=== PATIENT | female | born 1980 | race Hispanic/Latino ===

== ENCOUNTER 2019-02-09 19:23 | Emergency (ER) | payer OTHER ==
[2019-02-09 20:25] LABS: Hematocrit 31.3 % (30.3-42.9); Hemoglobin 9.5 gm/dl (10.1-14.3); Mean Corpuscular HGB Conc 30 % (30-34); Platelet Count 164 K/mm3 (140-440); Red Blood Count 4.95 M/mm3 (3.65-5.03)
[2019-02-09 20:32] LABS: BUN/Creatinine Ratio 23; Blood Urea Nitrogen 9 mg/dL (7-17); Calcium 8.8 mg/dL (8.4-10.2); Hemolysis Index 4
[2019-02-09 20:34] LABS: Mean Corpuscular Volume 63 fl (79-97)
[2019-02-09 20:35] LABS: Red Cell Distribution Width 20.7 % (13.2-15.2)
--- NOTE | 2019-02-09 21:04 | XRay Report ---
XR CHEST ROUTINE 2V CLINICAL INDICATION: Female, 38 years of age. Chest Pain COMPARISON: None. Findings: Frontal and lateral views of the chest were obtained. Cardiac silhouette is within normal limits. No focal consolidation or effusion. No pneumothorax. Prior anterior fusion of the lower cerv ical spine. IMPRESSION: No acute findings. This document is electronically signed by Xander Bradley DO., February 09 2019 09:03:02 PM ET
[2019-02-09 21:16] LABS: Anisocytosis 1+; Band Neutrophils # (Manual) 0.2 K/mm3; Basophils % (Manual) 0 % (0.0-1.8); Eosinophils % (Manual) 0 % (0.0-4.3); Total Cells Counted 100
[2019-02-09 21:17] LABS: Hypochromasia 2+; Ovalocytes 1+; Platelet Estimate Consistent w Auto
[2019-02-09] MEDS ORDERED: VALIUM IV ONE (23:12)
[2019-02-09] MEDS ORDERED: ATIVAN IV PRN ×3 (23:13)
--- NOTE | 2019-02-09 23:24 | Emergency Department Report ---
ED General Adult HPI - General Chief complaint: Alcohol Stated complaint: NAUSEA/DETOX Time Seen by Provider: 02/09/19 23:05 Source: patient, family, RN notes reviewed Mode of arrival: Ambulatory Limitations: No Limitations - History of Present Illness Initial comments: This is a 38-year-old female, not known to this provider previously. Her primary care doctor is Dr. Fields patient reports a past medical history of alcohol dependence, gastric bypass, asthma. The patient presents to the emergency room with a complaint of requesting alcohol detox. She reports taking multiple shots every day, over the past 6 months. Her last alcoholic drink was at 5 to 6:00 this morning. Since stopping alcohol consumption, she is developed tremors, nausea, weakness, malaise and fatigue. She denies,'s Lao suicidality. She is nauseous, and vomited times once. She denies focal extremity weakness. She makes no complaint of chest pain. She does endorse that she feels like her heart is "pounding in my chest." The patient reports that she feels very anxious, and very jittery. She denies abdominal pain at this time. She denies urinary symptoms. She denies oral contraceptive use. She denies DVT, pulmonary embolus risk factors. -: Gradual, hour(s) Severity scale (0 -10): 8 Consistency: constant Improves with: none Worsens with: none - Related Data Previous Rx's Medication Instructions Recorded Last Taken Type Folic Acid [Folvite] 1 mg PO QDAY #30 tablet 02/10/19 Unknown Rx Magnesium Oxide 400 mg PO BID #28 tablet 02/10/19 Unknown Rx Multivitamin [One Daily 1 each PO QDAY #30 tablet 02/10/19 Unknown Rx Multivitamin] chlordiazePOXIDE [Librium] 25 mg PO Q6H PRN #20 capsule 02/10/19 Unknown Rx Allergies Allergy/AdvReac Type Severity Reaction Status Date / Time Penicillins Allergy Anaphylaxis Verified 02/09/19 19:34 ED Review of Systems ROS: Stated complaint: NAUSEA/DETOX Other details as noted in HPI Constitutional: malaise Eyes: denies: eye discharge ENT: denies: epistaxis Respiratory: denies: cough Cardiovascular: palpitations Gastrointestinal: nausea, vomiting Genitourinary: denies: dysuria Musculoskeletal: denies: back pain Skin: denies: lesions Neurological: weakness Psychiatric: anxiety. denies: homicidal thoughts, suicidal thoughts ED Past Medical Hx - Past Medical History Previous Medical History?: Yes Hx Asthma: Yes Additional medical history: ETOH - Surgical History Past Surgical History?: Yes Additional Surgical History: c- sect, Gastric BYpass, cervical fusion - Social History Smoking Status: Current Every Day Smoker Substance Use Type: Alcohol - Medications Home Medications: Home Medications Medication Instructions Recorded Confirmed Last Taken Type Folic Acid [Folvite] 1 mg PO QDAY #30 tablet 02/10/19 Unknown Rx Magnesium Oxide 400 mg PO BID #28 tablet 02/10/19 Unknown Rx Multivitamin [One Daily 1 each PO QDAY #30 tablet 02/10/19 Unknown Rx Multivitamin] chlordiazePOXIDE [Librium] 25 mg PO Q6H PRN #20 capsule 02/10/19 Unknown Rx ED Physical Exam - General Limitations: No Limitations General appearance: alert, anxious, obese - Head Head exam: Present: atraumatic, normocephalic - Eye Eye exam: Present: normal appearance, PERRL, EOMI, other (visual acuity intact to finger counting, color perception, reading at a close distance). Absent: nystagmus - ENT ENT exam: Present: normal exam, normal orophraynx, normal external ear exam, o ther (tongue fasciculations noted) - Neck Neck exam: Present: normal inspection, full ROM. Absent: tenderness, meningismus - Respiratory Respiratory exam: Present: normal lung sounds bilaterally. Absent: respiratory distress - Cardiovascular Cardiovascular Exam: Present: regular rate, normal rhythm, normal heart sounds. Absent: bradycardia, tachycardia, irregular rhythm, systolic murmur, diastolic murmur, rubs, gallop - GI/Abdominal GI/Abdominal exam: Present: soft. Absent: distended, tenderness, guarding, rebound, rigid, pulsatile mass - Extremities Exam Extremities exam: Present: normal inspection, full ROM, other (2+ pulses noted in the bilateral upper, lower extremities. Compartments soft. No long bony tenderness. The pelvis is stable.). Absent: pedal edema, joint swelling, calf tenderness - Back Exam Back exam: Present: normal inspection, full ROM. Absent: tenderness, CVA tenderness (R), paraspinal tenderness, vertebral tenderness - Neurological Exam Neurological exam: Present: alert, oriented X3, CN II-XII intact, normal gait, other (Extraocular movements intact. Tongue midline. No facial droop. Facial sensation intact to light touch in the V1, V2, V3 distribution bilaterally. 5 and 5 strength in 4 extremities.. Sensation is intact to light touch in 4 extremities.). Absent: motor sensory deficit - Psychiatric Psychiatric exam: Present: anxious. Absent: homicidal ideation, suicidal ideation - Skin Skin exam: Present: warm, dry, intact, normal color. Absent: rash ED Course Vital Signs 02/09/19 02/09/19 02/09/19 19:33 23:03 23:07 Temperature 98.1 F Pulse Rate 79 89 Respiratory 18 16 22 Rate Blood Pressure 148/86 Blood Pressure 112/86 [Left] O2 Sat by Pulse 99 98 Oximetry 02/09/19 02/09/19 02/09/19 23:21 23:31 23:45 Temperature Pulse Rate 76 93 H Respiratory 16 20 Rate Blood Pressure 112/86 112/86 112/86 Blood Pressure [Left] O2 Sat by Pulse 97 99 94 Oximetry 02/10/19 02/10/19 02/10/19 00:01 00:15 00:31 Temperature Pulse Rate 95 H 94 H 94 H Respiratory 20 15 20 Rate Blood Pressure 112/86 134/63 134/63 Blood Pressure [Left] O2 Sat by Pulse 96 99 97 Oximetry 02/10/19 02/10/19 02/10/19 00:45 01:15 02:21 Temperature Pulse Rate 104 H 100 H 109 H Respiratory 13 18 15 Rate Blood Pressure 134/63 139/82 124/68 Blood Pressure [Left] O2 Sat by Pulse 97 97 93 Oximetry 02/10/19 04:42 Temperature 98.1 F Pulse Rate 108 H Respiratory 16 Rate Blood Pressure Blood Pressure 118/79 [Left] O2 Sat by Pulse 96 Oximetry - Reevaluation(s) Reevaluation #1: 02/09/19 23:25 Differential diagnosis, including but not limited to: Alcohol dependence, alcohol withdrawal, medical clearance for alcohol detox therapy Assessment and plan: 38-year-old female with evidence of alcohol withdrawal, manifested by tremors, tongue fasciculations, and anxiety. She makes no complaint of chest pain to this patient. She denies DVT, pulmonary embolus risk factors, she is low risk by well's criteria, and she is perc negative A troponin was sent prior to my evaluation, and is negative, and the patient's history and physical, I do not suspect acute coronary syndrome at this time. Furthermore, with a negative troponin, the patient appears to be low risk by objective scoring system, such as the heart score. Patient and low risk from a previous cardiac event. We will start the patient on alcohol withdrawal protocol. She does not meet 1013 criteria. Her initial CIWA score is 14. She will be given IV fluids, and 5 mg of Valium. A psychiatric consultation has been requested. Reevaluation #2: 02/10/19 00:24 Patient clinically appears to be much improved. Repeat ciwa score is 6 No active vomiting. Reevaluation #3: 02/10/19 01:45 Patient is currently awaiting evaluation by our psychiatric team. Resting comfortably, in no acute distress. Care will be transferred to the overnight physician, Dr. Nay Brito, to follow- up in psychiatry team's recommendations. I anticipate discharge with outpatient management. The patient will be written for as needed Librium, and magnesium. ED Medical Decision Making - Lab Data Result diagrams: 02/09/19 19:45 02/09/19 19:45 Vital Signs 02/09/19 02/09/19 19:33 23:07 Temperature 98.1 F Pulse Rate 79 89 Respiratory 18 22 Rate Blood Pressure 148/86 Blood Pressure 112/86 [Left] O2 Sat by Pulse 99 98 Oximetry Lab Results 02/09/19 02/09/19 02/09/19 Range/Units 19:45 19:45 19:45 WBC (4.5-11.0) K/mm3 RBC (3.65-5.03) M/mm3 Hgb (10.1-14.3) gm/dl Hct (30.3-42.9) % MCV (79-97) fl MCH (28-32) pg MCHC (30-34) % RDW (13.2-15.2) % Plt Count (140-440) K/mm3 Add Manual Diff Total Counted Seg Neutrophils % Seg Neuts % (Manual) (40.0-70.0) % Band Neutrophils % % Lymphocytes % (Manual) (13.4-35.0) % Reactive Lymphs % (Man) % Monocytes % (Manual) (0.0-7.3) % Eosinophils % (Manual) (0.0-4.3) % Basophils % (Manual) (0.0-1.8) % Metamyelocytes % % Myelocytes % % Promyelocytes % % Blast Cells % % Nucleated RBC % Seg Neutrophils # Man (1.8-7.7) K/mm3 Band Neutrophils # K/mm3 Lymphocytes # (Manual) (1.2-5.4) K/mm3 Abs React Lymphs (Man) K/mm3 Monocytes # (Manual) (0.0-0.8) K/mm3 Eosinophils # (Manual) (0.0-0.4) K/mm3 Basophils # (Manual) (0.0-0.1) K/mm3 Metamyelocytes # K/mm3 Myelocytes # K/mm3 Promyelocytes # K/mm3 Blast Cells # K/mm3 WBC Morphology Hypersegmented Neuts Hyposegmented Neuts Hypogranular Neuts Smudge Cells Toxic Granulation Toxic Vacuolation Dohle Bodies Pelger-Huet Anomaly Uyen Rods Platelet Estimate Clumped Platelets Plt Clumps, EDTA Large Platelets Giant Platelets Platelet Satelliting Plt Morphology Comment RBC Morphology Dimorphic RBCs Polychromasia Hypochromasia Poikilocytosis Anisocytosis Microcytosis Macrocytosis Spherocytes Pappenheimer Bodies Sickle Cells Target Cells Tear Drop Cells Ovalocytes Helmet Cells [place] Bodies [place] Rings [place] Cells Bite Cells Crenated Cell Elliptocytes Acanthocytes (Spur) Rouleaux Hemoglobin C Crystals Schistocytes Malaria parasites Robson Bodies Hem Pathologist Commnt Sodium 138 (137-145) mmol/L Potassium 3.7 (3.6-5.0) mmol/L Chloride 98.0 (98-107) mmol/L Carbon Dioxide 23 (22-30) mmol/L Anion Gap 21 mmol/L BUN 9 (7-17) mg/dL Creatinine 0.4 L (0.7-1.2) mg/dL Estimated GFR > 60 ml/min BUN/Creatinine Ratio 23 % Glucose 138 H (65-100) mg/dL Calcium 8.8 (8.4-10.2) mg/dL Troponin T (0.00-0.029) ng/mL HCG, Qual (Negative) Salicylates 0.8 L (2.8-20.0) mg/dL Acetaminophen < 5.0 L (10.0-30.0) ug/mL Plasma/Serum Alcohol (0-0.07) % 0402/09/19 02/09/19 Range/Units 19:45 19:45 19:45 WBC 5.4 (4.5-11.0) K/mm3 RBC 4.95 (3.65-5.03) M/mm3 Hgb 9.5 L (10.1-14.3) gm/dl Hct 31.3 (30.3-42.9) % MCV 63 L (79-97) fl MCH 19 L (28-32) pg MCHC 30 (30-34) % RDW 20.7 H (13.2-15.2) % Plt Count 164 (140-440) K/mm3 Add Manual Diff Complete Total Counted 100 Seg Neutrophils % Store Keeper Seg Neuts % (Manual) 89.0 H (40.0-70.0) % Band Neutrophils % 4.0 % Lymphocytes % (Manual) 3.0 L (13.4-35.0) % Reactive Lymphs % (Man) 0 % Monocytes % (Manual) 4.0 (0.0-7.3) % Eosinophils % (Manual) 0 (0.0-4.3) % Basophils % (Manual) 0 (0.0-1.8) % Metamyelocytes % 0 % Myelocytes % 0 % Promyelocytes % 0 % Blast Cells % 0 % Nucleated RBC % Not Reportable Seg Neutrophils # Man 4.8 (1.8-7.7) K/mm3 Band Neutrophils # 0.2 K/mm3 Lymphocytes # (Manual) 0.2 L (1.2-5.4) K/mm3 Abs React Lymphs (Man) 0.0 K/mm3 Monocytes # (Manual) 0.2 (0.0-0.8) K/mm3 Eosinophils # (Manual) 0.0 (0.0-0.4) K/mm3 Basophils # (Manual) 0.0 (0.0-0.1) K/mm3 Metamyelocytes # 0.0 K/mm3 Myelocytes # 0.0 K/mm3 Promyelocytes # 0.0 K/mm3 Blast Cells # 0.0 K/mm3 WBC Morphology Not Reportable Hypersegmented Neuts Not Reportable Hyposegmented Neuts Not Reportable Hypogranular Neuts Not Reportable Smudge Cells Not Reportable Toxic Granulation Not Reportable Toxic Vacuolation Not Reportable Dohle Bodies Not Reportable Pelger-Huet Anomaly Not Reportable Uyen Rods Not Reportable Platelet Estimate Consistent w auto Clumped Platelets Not Reportable Plt Clumps, EDTA Not Reportable Large Platelets Not Reportable Giant Platelets Not Reportable Platelet Satelliting Not Reportable Plt Morphology Comment Not Reportable RBC Morphology Not Reportable Dimorphic RBCs Not Reportable Polychromasia Not Reportable Hypochromasia 2+ Poikilocytosis Not Reportable Anisocytosis 1+ Microcytosis 1+ Macrocytosis Not Reportable Spherocytes Not Reportable Pappenheimer Bodies Not Reportable Sickle Cells Not Reportable Target Cells Not Reportable Tear Drop Cells Not Reportable Ovalocytes 1+ Helmet Cells Not Reportable [place] Bodies Not Reportable [place] Rings Not Reportable Vane Cells Not Reportable Bite Cells Not Reportable Crenated Cell Not Reportable Elliptocytes Not Reportable Acanthocytes (Spur) Not Reportable Rouleaux Not Reportable Hemoglobin C Crystals Not Reportable Schistocytes Not Reportable Malaria parasites Not Reportable Robson Bodies Not Reportable Hem Pathologist Commnt No Sodium (137-145) mmol/L Potassium (3.6-5.0) mmol/L Chloride (98-107) mmol/L Carbon Dioxide (22-30) mmol/L Anion Gap mmol/L BUN (7-17) mg/dL Creatinine (0.7-1.2) mg/dL Estimated GFR ml/min BUN/Creatinine Ratio % Glucose (65-100) mg/dL Calcium (8.4-10.2) mg/dL Troponin T (0.00-0.029) ng/mL HCG, Qual Negative (Negative) Salicylates (2.8-20.0) mg/dL Acetaminophen (10.0-30.0) ug/mL Plasma/Serum Alcohol < 0.01 (0-0.07) % 02/09/19 Range/Units 19:52 WBC (4.5-11.0) K/mm3 RBC (3.65-5.03) M/mm3 Hgb (10.1-14.3) gm/dl Hct (30.3-42.9) % MCV (79-97) fl MCH (28-32) pg MCHC (30-34) % RDW (13.2-15.2) % Plt Count (140-440) K/mm3 Add Manual Diff Total Counted Seg Neutrophils % Seg Neuts % (Manual) (40.0-70.0) % Band Neutrophils % % Lymphocytes % (Manual) (13.4-35.0) % Reactive Lymphs % (Man) % Monocytes % (Manual) (0.0-7.3) % Eosinophils % (Manual) (0.0-4.3) % Basophils % (Manual) (0.0-1.8) % Metamyelocytes % % Myelocytes % % Promyelocytes % % Blast Cells % % Nucleated RBC % Seg Neutrophils # Man (1.8-7.7) K/mm3 Band Neutrophils # K/mm3 Lymphocytes # (Manual) (1.2-5.4) K/mm3 Abs React Lymphs (Man) K/mm3 Monocytes # (Manual) (0.0-0.8) K/mm3 Eosinophils # (Manual) (0.0-0.4) K/mm3 Basophils # (Manual) (0.0-0.1) K/mm3 Metamyelocytes # K/mm3 Myelocytes # K/mm3 Promyelocytes # K/mm3 Blast Cells # K/mm3 WBC Morphology Hypersegmented Neuts Hyposegmented Neuts Hypogranular Neuts Smudge Cells Toxic Granulation Toxic Vacuolation Dohle Bodies Pelger-Huet Anomaly Uyen Rods Platelet Estimate Clumped Platelets Plt Clumps, EDTA Large Platelets Giant Platelets Platelet Satelliting Plt Morphology Comment RBC Morphology Dimorphic RBCs Polychromasia Hypochromasia Poikilocytosis Anisocytosis Microcytosis Macrocytosis Spherocytes Pappenheimer Bodies Sickle Cells Target Cells Tear Drop Cells Ovalocytes Helmet Cells [place] Bodies [place] Rings [place] Cells Bite Cells Crenated Cell Elliptocytes Acanthocytes (Spur) Rouleaux Hemoglobin C Crystals Schistocytes Malaria parasites Robson Bodies Hem Pathologist Commnt Sodium (137-145) mmol/L Potassium (3.6-5.0) mmol/L Chloride (98-107) mmol/L Carbon Dioxide (22-30) mmol/L Anion Gap mmol/L BUN (7-17) mg/dL Creatinine (0.7-1.2) mg/dL Estimated GFR ml/min BUN/Creatinine Ratio % Glucose (65-100) mg/dL Calcium (8.4-10.2) mg/dL Troponin T < 0.010 (0.00-0.029) ng/mL HCG, Qual (Negative) Salicylates (2.8-20.0) mg/dL Acetaminophen (10.0-30.0) ug/mL Plasma/Serum Alcohol (0-0.07) % - EKG Data -: EKG Interpreted by Me EKG shows normal: sinus rhythm, axis, intervals, QRS complexes, ST-T waves Rate: normal - EKG Data When compared to previous EKG there are: previous EKG unavailable Interpretation: normal EKG - Radiology Data Radiology results: report reviewed, image reviewed X-ray of the chest is negative for acute disease. Critical Care Time: Yes Critical care time in (mins) excluding proc time.: 35 Critical care attestation.: If time is entered above; I have spent that time in minutes in the direct care of this critically ill patient, excluding procedure time. ED Disposition Clinical Impression: Alcohol dependence Disposition: DC-01 TO HOME OR SELFCARE Is pt being admited?: No Does the pt Need Aspirin: No Condition: Stable Instructions: Abuse of Alcohol (ED), Alcohol Withdrawal (ED) Additional Instructions: Take the medications as needed/directed. Discontinue consumption of alcohol. Take the Librium medication as needed for sensation of alcohol withdrawal. Follow-up with a primary care doctor, or station air traffic control specialist within the next 2- 3 days to direct further outpatient treatment for presumed alcohol withdrawal. Take the magnesium supplementation as directed. Take multivitamins and folic acid as directed. Please follow up with the primary care doctor within the next 10 days to have magnesium level rechecked. Please return to the emergency room right away with new, worsening or different symptoms. Prescriptions: Folic Acid [Folvite] 1 mg PO QDAY #30 tablet chlordiazePOXIDE [Librium] 25 mg PO Q6H PRN #20 capsule PRN Reason: Alcohol Withdrawal Magnesium Oxide 400 mg PO BID #28 tablet Multivitamin [One Daily Multivitamin] 1 each PO QDAY #30 tablet Referrals: DONNA PEREZ MD [Primary Care Provider] - 3-5 Days [facility] [Outside] - 3-5 Days
[2019-02-09] MEDS ORDERED: ZOFRAN IV ONE (23:26)
[2019-02-09] MEDS ORDERED: D5/0.45NS 1,000 ML IV SCH (23:45)
[2019-02-10 00:17] LABS: Bilirubin,Urine NEG (Negative); Blood,Urine SM (Negative); Color,Urine Amber (Yellow); Mucus,Urine 2+ /HPF
[2019-02-10 00:18] LABS: Amphetamine Screen,Urine PRESUMPTIVE NEGATIVE; Benzodiazepines Screen,Urine PRESUMPTIVE NEGATIVE; Cannabinoid Screen,Urine PRESUMPTIVE NEGATIVE; Cocaine Screen,Urine PRESUMPTIVE NEGATIVE; Methadone Screen,Urine PRESUMPTIVE NEGATIVE; Opiate Screen,Urine PRESUMPTIVE NEGATIVE
[2019-02-10] MEDS ORDERED: MAGNESIUM SULFATE 2GM/50ML 2 GM/50 ML BAG IV ONE (00:57)
[2019-02-10] MEDS ORDERED: MAGNESIUM SULFATE 1 GM in NACL 0.9% 50 ML IV ONE (00:57)
[2019-02-10 04:43] VITALS: BP 118/79
== END 2019-02-10 04:43 | disposition home or self-care (01) ==
LOC: ED 19:23
DX: F10.20 Alcohol dependence, uncomplicated (principal); J45.909 Unspecified asthma, uncomplicated; F17.200 Nicotine dependence, unspecified, uncomplicated; Z88.0 Allergy status to penicillin; Y90.1 Blood alcohol level of 20-39 mg/100 ml
CPT/HCPCS: 36415; 71046; 80048; 80307; 81001; 82550; 83735; 84484; 84703; 85007; 85025; 93005; 93010; 96361; 96365; 96367; 96375; 99284; G0480; J2060; J2405; J3360; J3475; 80320